=== PATIENT | female | born 1975 | race Caucasian/White ===

== ENCOUNTER 2017-05-27 07:27 | Day surgery (SDC) | payer OTHER ==
[2017-05-23 10:08] VITALS: BMI 27.7
[2017-05-27] MEDS ORDERED: oxyCODONE HCL 10 MG SUSTAINED ACTING TABLET PO ONE (07:30)
[2017-05-27] MEDS ORDERED: ROCURONIUM BROMIDE 50 MG/5 ML VIAL ONE (07:39)
[2017-05-27] MEDS ORDERED: ONDANSETRON 4 MG/2 ML VIAL ONE (07:39)
[2017-05-27] MEDS ORDERED: SUCCINYLCHOLINE CHLORIDE 200 MG/10 ML VIAL ONE (07:39)
[2017-05-27] MEDS ORDERED: PROPOFOL 20 ML ONE ×10 (07:39→10:33)
[2017-05-27] MEDS ORDERED: MIDAZOLAM HCL 2 MG/2 ML SINGLE DOSE VIAL ONE ×2 (07:40→09:18)
--- NOTE | 2017-05-27 08:10 | HP ---
History & Physical Update - History History: No Change - Physical Physical: No Change - Assessment Assessment: No Change - Plan Plan: No Change
[2017-05-27] MEDS ORDERED: diphenhydrAMINE HCL 25 MG CAPSULE (FP) PO PRN (08:11)
[2017-05-27] MEDS ORDERED: methylPREDNISolone NA SUCC 40 MG/1 ML VIAL ONE (08:53)
[2017-05-27] MEDS ORDERED: ALBUTEROL SO4 0.083% IH SOL 2.5 MG/3 ML VIAL.NEB. NEB ONE (08:59)
[2017-05-27] MEDS ORDERED: HYDROmorphone HCL/PF 1 MG/ML VIAL (FOR PYXIS CHARGING ONLY) ONE ×2 (09:13→09:52)
[2017-05-27] MEDS ORDERED: LIDOCAINE HCL 1%, 10 MG/ML (50 mL VIAL) IJ ONE (09:30)
--- NOTE | 2017-05-27 11:59 | OP ---
Operative Note - Note: Operative Date: 05/27/17 Pre-Operative Diagnosis: cervical stenosis Operation: c3-c4, c5-c6 antieror cervical fusion Post-Operative Diagnosis: Same as Pre-op Surgeon: Elia Irizarry Filler In: Ana Barry Anesthesiologist/CONSTRUCTION MATERIALS TESTER: Tyra Bass Anesthesia: General Estimated Blood Loss (mls): 30 Fluid Volume Replaced (mls): 1,000 Operative Report Dictated: Yes
[2017-05-27] MEDS ORDERED: ONDANSETRON 4 MG/2 ML VIAL IVPB PRN (12:07)
[2017-05-27] MEDS ORDERED: oxyCODONE HCL 5 MG TABLET PO PRN (12:07)
[2017-05-27] MEDS ORDERED: KETOROLAC TROMETHAMINE 30 MG/1 ML VIAL IVPUSH PRN (12:07)
[2017-05-27] MEDS ORDERED: ONDANSETRON 4 MG/2 ML VIAL IVPUSH PRN (12:10)
[2017-05-27] MEDS ORDERED: ALBUTEROL SO4 6.7 GM HFA INHALER IH PRN (12:12)
[2017-05-27] MEDS ORDERED: LACTATED RINGERS SOLUTION 1,000 ML IV SCH (12:15)
[2017-05-27] MEDS ORDERED: diazePAM CARPU-JECT 10 MG/2 ML DISP.SYRIN IVPUSH PRN (12:55)
[2017-05-27] MEDS ORDERED: ACETAMINOPHEN 1000 MG/100 ML VIAL (NON FORMULARY) IVPB PRN (12:56)
[2017-05-27] MEDS ORDERED: ACETAMINOPHEN 1000 MG/100 ML VIAL (NON FORMULARY) IVPB ONE (12:56)
--- NOTE | 2017-05-27 12:59 | SURG ---
Surgery Kerrick Kleaner Operator Note Kerrick Kleaner Operator: Ana Barry PA-C Date of Service: 05/27/17 Diagnosis: cervical stenosis Procedure: C3-C4/C5-C6 anterior cervical fusion I was present for the entirety of the operative procedure. For further detail, please refer to operative report. Visit type - Case Type Case Type: Scheduled Admission - Emergency Emergency Visit: No - New patient This patient is new to me today: Yes Date on this admission: 05/27/17 - Critical Care Critical Care patient: No
[2017-05-27] MEDS ORDERED: ACETAMINOPHEN INJECTION 100 ML IVPB ONE (13:00)
[2017-05-27] MEDS ORDERED: diazePAM CARPU-JECT 10 MG/2 ML DISP.SYRIN ONE (13:00)
[2017-05-27] MEDS ORDERED: traMADol HCL 50 MG TABLET PO SCH (18:00)
[2017-05-27] MEDS: ACETAMINOPHEN 325 MG TABLET (FP) PO SCH (18:09)
[2017-05-27] MEDS: CEFAZOLIN 1 GM/D5W 50 ML IVPB SCH (18:09)
[2017-05-27] MEDS: oxyCODONE HCL 5 MG TABLET PO PRN ×2 (18:49→23:00)
[2017-05-27] MEDS: MONTELUKAST NA 10 MG TABLET PO SCH (23:50)
[2017-05-27] MEDS: diazePAM 5 MG TABLET PO SCH (23:50)
[2017-05-27] MEDS: AMITRIPTYLINE HCL 25 MG TABLET (FP) PO SCH (23:51)
[2017-05-28] MEDS ORDERED: HYDROmorphone *PCA* 10MG/50ML DISP.SYRIN PCA SCH (00:30)
[2017-05-28] MEDS ORDERED: HYDROmorphone *PCA* 10MG/50ML DISP.SYRIN PCA ONE (00:38)
[2017-05-28] MEDS: ACETAMINOPHEN 325 MG TABLET (FP) PO SCH ×4 (01:22→18:56)
[2017-05-28] MEDS: CEFAZOLIN 1 GM/D5W 50 ML IVPB SCH (02:52)
[2017-05-28] MEDS ORDERED: PT OWN MED DRAWER 7, Y5N ONE ×3 (06:25→22:06)
--- NOTE | 2017-05-28 08:15 | PN ---
Addendum entered and electronically signed by Ana Barry PA 05/28/17 14:52: Pts pain better controlled and IV dilaudid DELIMER discontinued by anesthesia. FEED WEIGHER reviewed prior to surgery and pts has her percocoet with her in the hospital approx 10 pills remaining in the bottle as seen by the nursing staff. Will dishcharge the patient with 20 tab of percocoet. I spoke with her and and informed her to obtain an appointment with her pain management physician this week/next week. Hopefully with her surgical procedure her pain will reduce and she will be able to wean herself off of narcotics, although she does have chronic low back pain and is awaiting an injection. Original Note: Progress Note (short form) - Note Progress Note: PT states that her headache/pain to right side of her head and pain in her right arm have improved. She was started on dilaudid for her pain symptoms overnight. Her pain level is a 5 this am. She tolerated clears and several bites of soft foods(pudding) but overall decreased appetite. She wasn't oob yesterday or overnight. Voiding without difficulty. She states that she is very sleepy this am, little sleep overnight. I reviewed her normal pain management intake, she also has chronic low back pain and is a patient of Dr. Bradshaw, at the pain management center. In the further she has a epidural steriod injection planned. Vital Signs Period Temp Pulse Resp BP Sys/Chan Pulse Ox Last 24 Hr 98.6 F-99.5 F 63-95 8-19 112-135/58-78 99-100 GEN: Alert, in NAD HEENT: inc/dressing is c/d/i with 4x4 gauze/tegaderm. No hematoma/ecchymosis noted. No stridor. Cervical collar in place. CV: RRR Lungs: CTA b/l, no wheezing ABD: soft, non-distended, non-tender LE: no calf tenderness or swelling noted. Neuro: Moving ext without difficulty. poor effort but hydro mechanic strength equal b/l. Dorsi/plantar flexion equal b/l-poor effort. Psych: Flat effect. A/P: 41 yo female s/p C3-C4/C5-C6 anterior cervical fusion, POD#1 PT with pain, continue IV dilaudid DELIMER OOB and ambulate with PT Diet as tolerated DVT ppx with SCDs Wear cervical collar S/w Dr. Irizarry and will hold discharge until pts pain managed with oral medications, she has chronic low back pain with daily narcotic use Add stool softners as needed <Ana Barry - Last Filed: 05/28/17 14:27> - Note Progress Note: Patient seen and examined Agree with above D/C Planning <Elia Irizarry - Last Filed: 05/30/17 15:41>
--- NOTE | 2017-05-28 08:46 | OP ---
DATE OF OPERATION: 05/27/2017 PREOPERATIVE DIAGNOSIS: Cervical stenosis, C3-C4, C4-C5. POSTOPERATIVE DIAGNOSIS: Cervical stenosis, C3-C4, C4-C5. PROCEDURE PERFORMED: 1. Anterior cervical discectomy, C3-C4, C4-C5. 2. Anterior cervical fusion C3-C4, C4-C5. 3. Placement of instrumentation. 4. Placement of prosthetic cages. SURGEON: Elia Irizarry MD ELECTORAL OFFICER: ALEJANDRO Goldstein ESTIMATED BLOOD LOSS: 50 mL. INTRAVENOUS FLUIDS: Per Anesthesia. ANESTHESIA: General. COMPLICATIONS: There were none. DISPOSITION: Patient brought to the PACU in stable condition. INDICATIONS FOR SURGERY: The patient is a 41-year-old female who has been suffering from pain from her neck down her right arm. X-rays and MRI were completed, which noted that she had cervical stenosis at C3-C4 and C4-C5. She had gone through an exhaustive course of treatment which included medications, physical therapy, as well as injections. Unfortunately, her pain continued to persist despite all this. At this point, risks, benefits, and alternatives were discussed, and the patient consented to surgery. OPERATIVE NOTE: The patient was brought into the operating room by the anesthesia staff. After appropriate patient identification was performed, general anesthesia was administered. Appropriate anesthetic lines were placed. SCDs were placed on the patient. Neuromonitoring leads were attached. She was placed supine on the OR bed with her arms tucked in at her sides. All areas of bony prominences were well padded at this time. A needle was taped onto her neck to kari off the C3-C4 level, and x-rays taken to confirm this was correct. Needle was removed, and 10 mL of lidocaine with epinephrine was injected into her neck at this time. Her neck was prepped and draped in the usual sterile manner. At this point, a time-out was completed. A 2-inch incision was made in the left side of her neck. Dissection was carried down to the platysma. The platysma was cut in line with the skin incision. Next, internally rotated sternocleidomastoid as well as strap muscles was developed. Internally rotated, the carotid sheath as well as tracheal esophagus was developed. Peanuts were used to elevate it off the prevertebral fascia. A needle was placed into the C4-C5 disc, and x-ray was taken to confirm this was correct. At this point, the longus colli muscles were elevated off, and retractor blades were placed in. A Jeddo pin was placed into the body of C3 and C5. A knife was used to incise the disc and the microscope was brought in. At this point, using a series of pituitaries, Kerrrisons, and curettes, a discectomy was completed. End-plates were decorticated at this time. Cages filled with bone graft were placed in. Screws were placed into the bodies of C3, C4, and C5. Jeddo pins were removed. AP and lateral x-rays confirmed the instrumentation to be in good position. Final tightening was performed at this time. All bleeding was well controlled. The platysma was closed with a 2-0 Vicryl suture. Skin was closed with a 3-0 Monocryl suture. Dermabond was applied. Steri-Strips were applied. Sterile dressings were applied. Patient was placed supine on the OR bed, extubated in the OR, and brought to the PACU in stable condition. Gerard [id number]
[2017-05-28] MEDS: diazePAM 5 MG TABLET PO SCH ×2 (09:49→22:07)
[2017-05-28] MEDS: BUDESONIDE/FORMETEROL FUMARATE 80/4.5 mcg INHALER IH SCH ×2 (09:49→22:07)
--- NOTE | 2017-05-28 11:08 | PN ---
Progress Note (short form) - Note Progress Note: 41F POD1 s/p ACDF under [facility]. Pt started on dilaudid IV RUBBER STAMP DIES INSPECTOR last night for pain. Patient states that RUBBER STAMP DIES INSPECTOR improved her symptoms. Pt stating now that she has difficulty swallowing. Dr. Irizarry made aware. Continue dilaudid IV RUBBER STAMP DIES INSPECTOR for now.
[2017-05-28] MEDS ORDERED: DEXAMETHASONE SOD PHOSPHATE 10 MG/1 ML VIAL IVPUSH ONE (13:00)
[2017-05-28] MEDS: LACTATED RINGERS SOLUTION 1,000 ML IV SCH (13:49)
[2017-05-28] MEDS: HYDROmorphone HCL 2 MG TABLET PO PRN ×3 (15:26→21:02)
[2017-05-28] MEDS: AMITRIPTYLINE HCL 25 MG TABLET (FP) PO SCH (21:02)
[2017-05-28] MEDS: DOCUSATE SODIUM 100 MG CAPSULE (FP) PO SCH (22:07)
[2017-05-28] MEDS: MONTELUKAST NA 10 MG TABLET PO SCH (22:07)
[2017-05-29] MEDS: ACETAMINOPHEN 325 MG TABLET (FP) PO SCH ×3 (01:00→13:37)
[2017-05-29] MEDS: HYDROmorphone HCL 2 MG TABLET PO PRN (06:32)
--- NOTE | 2017-05-29 08:22 | DS ---
Physical Exam: SUBJECTIVE: Patient seen and examined this am. Having some pain with swallowing , slight difficulty swallowing. OOB/ambulating to the nursing station last pm. She was able to swallow colace pill without difficulty and did have some breakfast yesterday(solid food) Poor appetite for dinner. OBJECTIVE: Vital Signs Temperature 98.9 F 05/29/17 05:12 Pulse Rate 75 05/29/17 05:12 Respiratory Rate 20 05/29/17 05:12 Blood Pressure 101/58 05/29/17 05:12 O2 Sat by Pulse Oximetry (%) 98 05/29/17 05:12 PHYSICAL EXAM GENERAL: The patient is awake, alert, and fully oriented, in no acute distress. NECK: Dressing changed. Incision c/d/i with steristrips, no evidence of bleeding /hematoma/or masses. Neck remains soft. applied new gauze/tegaderm. Small 1/2 x 1/2 cm superficial abrasion. EXTREMITIES: 2+ pulses, warm, well-perfused, no edema. No calf tenderness or swelling noted b/l. NEUROLOGICAL: Normal speech, 4/5 dorsi/plantar flexion b/l. Water Vessel Captain strength equal b/l. PSYCH: Flat affect LABS HOSPITAL COURSE: Date of Admission:05/27/17 Date of Discharge: 05/29/17 The patient was admitted to the Med-Surg Unit after an elective repair of their cervical stenosis. Now, s/p C3-C4/C4-C5 anterior spinal fusion. The patient was placed on IV dilaudid AGER TENDER for post-op pain control. An xray was obtained and confirmed hardware placement at C3-C4/C4-C5, no fractures or dislocations. Emily- operative IV ABX were administered. DVT prophylaxis was achieved with SCDs and early ambulation. She was transitioned from IV to oral pain mangement POD#1. She tolerated a regular diet(soft foods), pills. The patient ambulated with Physical Therapy and no services were recommended upon discharge. Narcotic scripts and or muscle relaxants were checked with [facility] MATTRESS RENOVATOR prior to escibe. The discharge instructions and an oral pain management plan were reviewed with the patient. All questions answered. Above plan discussed with Dr. Irizarry and agreed . The patient was advised to follow-up with her pain management Doctor, Dr. Trivedi. Minutes to complete discharge: 30 Visit type - Case Type Case Type: Scheduled Admission - Emergency Emergency Visit: No - New patient This patient is new to me today: No - Critical Care Critical Care patient: No
[2017-05-29] MEDS: diazePAM 5 MG TABLET PO SCH (09:34)
[2017-05-29] MEDS: DOCUSATE SODIUM 100 MG CAPSULE (FP) PO SCH (09:34)
[2017-05-29] MEDS ORDERED: PT OWN MED DRAWER 7, Y5N ONE (09:38)
[2017-05-29] MEDS: BUDESONIDE/FORMETEROL FUMARATE 80/4.5 mcg INHALER IH SCH (09:41)
[2017-05-29] MEDS ORDERED: BACITRACIN 15 GM TUBE TOPICAL OINTMENT TP SCH (10:00)
[2017-05-29 12:36] VITALS: BP 110/59; PULSE 70; TEMP 98.6
[2017-05-29] MEDS: LACTATED RINGERS SOLUTION 1,000 ML IV SCH (13:37)
--- NOTE | 2017-05-29 15:42 | PATH ---
Surgical Pathology Report Patient Name: CARRI LOZANO [facility]. Rec. #: [id number] /Age/Gender: 1975 (Age: 41) / F Account: [id number] Location: [facility] Taken: 05/27/2017 Received: 05/27/2017 Reported: 05/29/2017 Physicians: Elia Irizarry M.D. Specimen(s) Received C3-4, C4-5 DISC Clinical History Cervical stenosis Final Diagnosis C3-4, C4-5 DISC, DISCECTOMY: CARTILAGE WITH DEGENERATIVE CHANGES. SCANT BONE AND FIBROCOLLAGENOUS TISSUE. Electronically Signed Mae Fletcher M.D. Gross Description Received in formalin labeled "C3-4, C4-5 disc," is a 2.5 x 2.0 x 0.3 cm aggregate of carrillo fragments of fibrocartilaginous tissue. A merchandising representative portion is submitted in one cassette. /05/28/2017 [facility]05/28/2017
== END 2017-05-29 14:57 | disposition home or self-care (01) ==
LOC: FASU 07:27 → FM/S 13:35 → FASU 05-29 14:57
PROVIDERS: ATTEND Orthopaedic Surgery Orthopaedic Surgery of the Spine
PROC: 0RG10A0 Fusion of Cervical Vertebral Joint with Interbody Fusion Device, Anterior Approach, Anterior Column, Open Approach (ICD-10-PCS; 2017-05-27)
PROC: 0RG10K0 Fusion of Cervical Vertebral Joint with Nonautologous Tissue Substitute, Anterior Approach, Anterior Column, Open Approach (ICD-10-PCS; 2017-05-27)
PROC: 0RB30ZZ Excision of Cervical Vertebral Disc, Open Approach (ICD-10-PCS; principal; 2017-05-27 08:15)
DX: M48.02 Spinal stenosis, cervical region (principal)
CPT/HCPCS: 72050-TC; 84703; 88304-TC; 94010; 94760; 97116-GP; 97162-GP